=== PATIENT | female | born 1965 | race Caucasian/White ===

== ENCOUNTER 2019-12-17 08:42 | Emergency (ER) | payer MEDICARE, MEDICAID ==
[2019-12-17] MEDS ORDERED: Penicillin G Benzathine/Procaine 600-600 1.2 Millunits/2 ML Syringe IM ONE (09:52)
--- NOTE | 2019-12-17 09:56 | EDM.PDOC ---
ED HPI GENERAL MEDICAL PROBLEM - General Chief Complaint: ENT Problem Stated Complaint: SWOLLEN THROAT/TONGUE Time Seen by Provider: 12/17/19 09:40 Source of Information: Reports: Patient History Limitations: Reports: No Limitations - History of Present Illness INITIAL COMMENTS - FREE TEXT/NARRATIVE: 54-year-old female who has had a local detox center, over the past 24 hours is developed swelling on the left jaw and left perioral area. A slight pressure sensation and tenderness but no fever or chills. She has a history of throat cancer and has had her lymph nodes removed in the area. No difficulty swallowing or breathing. Onset: Gradual Duration: Hour(s): (24 hours) Location: Reports: Face Associated Symptoms: Reports: No Other Symptoms - Related Data Allergies Allergy/AdvReac Type Severity Reaction Status Date / Time No Known Allergies Allergy Verified 12/17/19 08:55 Home Meds: Home Meds Albuterol [Ventolin HFA] 2 puff IN BID 12/17/19 [History] Aspirin [Adult Low Dose Aspirin EC] 81 mg PO DAILY 12/17/19 [History] Budesonide/Formoterol [Symbicort 160-4.5 MCG] 1 puff INH BID 12/17/19 [History] Ezetimibe 10 mg PO DAILY 12/17/19 [History] FLUoxetine HCl [Fluoxetine HCl] 40 mg PO DAILY 12/17/19 [History] Fluticasone Propion/Salmeterol [Wixela 100-50 Inhub] 1 puff .ROUTE BID 12/17/19 [History] Folic Acid 1 mg PO DAILY 12/17/19 [History] Metoprolol Tartrate [Lopressor] 12.5 mg PO Q12HR 12/17/19 [History] Pantoprazole [ProTONIX] 40 mg PO DAILY 12/17/19 [History] Thiamine [Vitamin B-1] 100 mg PO DAILY 12/17/19 [History] Tiotropium [Spiriva HandiHaler] 1 cap INH DAILY 12/17/19 [History] amLODIPine [Norvasc] 2.5 mg PO DAILY 12/17/19 [History] atorvaSTATin [Lipitor] 80 mg PO BEDTIME 12/17/19 [History] risperiDONE [Risperdal] 0.5 mg PO BEDTIME 12/17/19 [History] Past Medical History Cardiovascular History: Reports: Hypertension, Stents Respiratory History: Reports: COPD Musculoskeletal History: Reports: Fracture Psychiatric History: Reports: Addiction, Anxiety, Dementia, Schizophrenia Oncologic (Cancer) History: Reports: Other (See Below) Other Oncologic History: throat Social & Family History - Tobacco Use Smoking Status *Q: Current Every Day Smoker Years of Tobacco use: 43 Packs/Tins Daily: 0.5 - Recreational Drug Use Recreational Drug Use: No ED ROS ENT - Review of Systems Review Of Systems: See Below Constitutional: Denies: Fever, Chills HEENT: Reports: Dental Pain, Throat Swelling Respiratory: Denies: Shortness of Breath Cardiovascular: Denies: Chest Pain GI/Abdominal: Denies: Nausea, Vomiting Neurological: Reports: No Symptoms ED EXAM, ENT - Physical Exam Exam: See Below Exam Limited By: No Limitations General Appearance: Alert, No Apparent Distress Eye Exam: Bilateral Eye: EOMI Mouth/Throat: Other (Patient has moderate edema in the submandibular area of the left jaw extending up into the lower left buccal area, mild fullness under the left tongue to palpation. Mild tenderness but no erythema or redness) Respiratory/Chest: No Respiratory Distress, Lungs Clear Course - Vital Signs Last Recorded V/S: Last Vital Signs Temp 97.1 F 12/17/19 09:04 Pulse 70 12/17/19 09:04 Resp 20 12/17/19 09:04 BP 112/67 12/17/19 09:04 Pulse Ox 95 12/17/19 09:04 - Orders/Labs/Meds Meds: Medications Discontinued Medications Generic Name Dose Route Start Last Admin Trade Name Freq PRN Reason Stop Dose Admin Penicillin G Procaine/Benzathine 1.2 millunits 12/17/19 09:52 12/17/19 10:02 Bicillin C-R 600/600 IM 12/17/19 09:53 1.2 millunits ONETIME ONE Administration - Re-Assessments/Exams Free Text/Narrative Re-Assessment/Exam: 12/17/19 09:54 This is likely a reactive lymphedema in the area, an underlying infection cannot be ruled out so she will be covered with antibiotics. She has no money or ability to get a prescription so was given a combination penicillin injection. She is scheduled to be discharged from the treatment center in 5 days, she can be rechecked at that time if not improving satisfactorily or return if worsening despite treatment. Departure - Departure Time of Disposition: 10:47 Disposition: Home, Self-Care 01 Clinical Impression: Lymphedema of face - Discharge Information Instructions: Lymphedema Referrals: PCP,None [Primary Care Provider] - Forms: ED Department Discharge Care Plan Goals: Cool compresses may be helpful, and recheck in 3 to 4 days if not improving satisfactorily. Return sooner if worsening such as marked increase in swelling , difficulty breathing or swallowing or increased pain. Sepsis Event Note - Evaluation Sepsis Screening Result: No Definite Risk - Focused Exam Vital Signs: Vital Signs Temp Pulse Resp BP Pulse Ox 12/17/19 09:04 97.1 F 70 20 112/67 95 Date Exam was Performed: 12/17/19 Time Exam was Performed: 11:08
== END 2019-12-17 10:47 | disposition home or self-care (01) ==
LOC: JP.ED 08:42
DX: I89.0 Lymphedema, not elsewhere classified (principal); I10 Essential (primary) hypertension; J44.9 Chronic obstructive pulmonary disease, unspecified; F41.9 Anxiety disorder, unspecified; F17.210 Nicotine dependence, cigarettes, uncomplicated; Z95.818 Presence of other cardiac implants and grafts; Z79.899 Other long term (current) drug therapy; Z79.82 Long term (current) use of aspirin
CPT/HCPCS: 96374; 99283; J0558